=== PATIENT | male | born 1995 | race Caucasian/White ===

== ENCOUNTER 2020-11-03 02:36 | Emergency (ER) | payer SELFPAY ==
[~2020-11-03] VITALS: Ht 188 cm; Wt 89.0 kg
[2020-11-03 02:39] VITALS: BP 170/76
[2020-11-03 05:52] LABS: BASOPHILS % (AUTO) 1 % (0-1); EOSINOPHILS % (AUTO) 2 % (1-7); LYMPHOCYTES % (AUTO) 32 % (22-44); MEAN CORPUSCULAR HEMOGLOBIN 31.9 pg (27.5-34.5); MEAN CORPUSCULAR HGB CONC 35.2 g/dL (33.2-36.2); MEAN PLATELET VOLUME 8.1 fL (7.4-10.4); MONOCYTES % (AUTO) 10 % (2-9); NEUTROPHILS % (AUTO) 55 % (42-75); PLATELET COUNT 232 x10^3/uL (130-400); RED BLOOD COUNT 5.15 x10^6/uL (4.38-5.82); RED CELL DISTRIBUTION WIDTH 12.5 % (9.4-14.8)
[2020-11-03 05:58] LABS: MD NO
[2020-11-03 05:59] LABS: ALBUMIN 4.4 g/dL (3.4-5.0); ANION GAP 5 mmol/L (5-15); CALCIUM 8.9 mg/dL (8.5-10.1); CHLORIDE 105 mmol/L (98-107)
[2020-11-03 06:03] LABS: ALANINE AMINOTRANSFERASE 45 U/L (12-78); ALKALINE PHOSPHATASE 72 U/L (45-117); BILIRUBIN,TOTAL 0.6 mg/dL (0.2-1.0); CREATININE 0.95 mg/dL (0.7-1.3); TOTAL PROTEIN 7.9 g/dL (6.4-8.2)
--- NOTE | 2020-11-03 06:30 | NUR ---
NIL X1
--- NOTE | 2020-11-03 07:29 | NUR ---
not in lobby
--- NOTE | 2020-11-03 08:29 | NUR ---
no answer in lobby
== END 2020-11-03 08:31 | disposition left against medical advice (07) ==
LOC: ED 08:25
DX: R06.00 Dyspnea, unspecified (principal); Z20.828 Contact with and (suspected) exposure to other viral communicable diseases; R00.2 Palpitations; R51.9 Headache, unspecified
CPT/HCPCS: 71045; 80053; 85025; 87635; 93005; 99285